=== PATIENT | male | born 1955 | race African-American/Black ===

== ENCOUNTER 2017-08-05 23:14 | Emergency (ER) | payer OTHER, MEDICAID ==
[~2017-08-05] VITALS: Wt 54.4 kg
[~2017-08-05 23:14] MED LIST: ANAPROX DS550 MG PO; CIPROFLOXACIN500 MG PO; KEFLEX500 M1 PO; LIDEX 0.05% CRE15 GM T; MOTRIN800 MG PO
[2017-08-05 23:19] VITALS: BP 155/92
[2017-08-06 00:11] LABS: BASO % 0.2 % (0.0-1.0); EOS # 0.1 10*3/uL (0.0-0.4); EOS % 1.3 % (1.0-4.0); HEMATOCRIT 35.6 % (42.0-52.0); HEMOGLOBIN 11.9 g/dl (14.0-18.0); LYMPH # 1.5 10*3/uL (1.3-4.4); LYMPH % 17.2 % (27.0-41.0); MEAN CELL VOLUME 90.1 fl (80.0-94.0); MEAN CORPUSCULAR HGB 30.1 pg (27.0-31.0); MEAN CORPUSCULAR HGB CONC 33.4 g/dl (33.0-37.0); MEAN PLATELET VOLUME 9.3 fl (9.6-12.3); MONO # 0.8 10*3/uL (0.1-1.0); MONO % 9.2 % (3.0-9.0); NEUT # 6.3 10*3/uL (2.3-7.9); NEUT % 71.9 % (47.0-73.0); PLATELET COUNT AUTOMATED 420 10*3/uL (130-400); RED BLOOD COUNT 3.95 10*6/uL (4.50-5.90); RED CELL DISTRI WIDTH 14.7 % (0-14.5); WHITE BLOOD COUNT 8.7 10*3/uL (4.8-10.8)
[2017-08-06 00:37] LABS: ALBUMIN 2.2 gm/dl (3.1-4.5); ALKALINE PHOSPHATASE 88 U/L (45-117); BUN 11 mg/dl (7-24); CHLORIDE 104 mmol/L (98-107); CREATININE 1.03 mg/dL (0.70-1.30); LIPASE 242 U/L (73-393); POTASSIUM 3.6 mmol/L (3.5-5.1); SGOT/AST 33 IU/L (3-35); SGPT/ALT 35 U/L (12-78); SODIUM 138 mmol/L (136-145); TOTAL PROTEIN 7.7 gm/dL (6.4-8.2)
[2017-08-06 00:42] LABS: TROPONIN I < 0.015 ng/ml (<0.045)
[2017-08-06] MEDS ORDERED: ZITHROMAX250 MG PO ×2 (01:06→01:12)
== END 2017-08-06 00:43 | disposition home or self-care (01) ==
LOC: ED 23:14
PROVIDERS: Emergency Medicine Emergency Medical Services
DX: J40 Bronchitis, not specified as acute or chronic (principal); D64.9 Anemia, unspecified; F17.200 Nicotine dependence, unspecified, uncomplicated

== ENCOUNTER → 2017-08-16 | Outpatient (CLI) | payer OTHER ==
[~2017-08-16] MED LIST changes: +ZITHROMAX250 MG PO
== END | disposition home or self-care (01) ==
LOC: RESCLI 01:23
DX: D64.9 Anemia, unspecified (principal); R05 Cough; F12.10 Cannabis abuse, uncomplicated; R73.03 Prediabetes; F17.200 Nicotine dependence, unspecified, uncomplicated; R06.09 Other forms of dyspnea; Z71.6 Tobacco abuse counseling; Z78.9 Other specified health status

== ENCOUNTER → 2017-08-29 | Outpatient (CLI) | payer OTHER ==
[2017-08-29 14:09] LABS: BASO % 0.6 % (0.0-1.0); EOS # 0.1 10*3/uL (0.0-0.4); EOS % 1.4 % (1.0-4.0); HEMATOCRIT 38.1 % (42.0-52.0); HEMOGLOBIN 12.7 g/dl (14.0-18.0); LYMPH # 1.7 10*3/uL (1.3-4.4); LYMPH % 22.8 % (27.0-41.0); MEAN CELL VOLUME 90.5 fl (80.0-94.0); MEAN CORPUSCULAR HGB 30.2 pg (27.0-31.0); MEAN CORPUSCULAR HGB CONC 33.3 g/dl (33.0-37.0); MEAN PLATELET VOLUME 10.5 fl (9.6-12.3); MONO # 0.9 10*3/uL (0.1-1.0); MONO % 11.8 % (3.0-9.0); NEUT # 4.6 10*3/uL (2.3-7.9); PLATELET COUNT AUTOMATED 265 10*3/uL (130-400); RED BLOOD COUNT 4.21 10*6/uL (4.50-5.90); RED CELL DISTRI WIDTH 17.1 % (0-14.5); WHITE BLOOD COUNT 7.2 10*3/uL (4.8-10.8)
[2017-08-29 14:32] LABS: IRON 95 ug/dL (65-175); TOTAL IRON BINDING CAPACITY 328 ug/dl (250-450)
== END | disposition home or self-care (01) ==
LOC: LAB 13:32
PROVIDERS: Internal Medicine
DX: D64.9 Anemia, unspecified (principal)

== ENCOUNTER → 2017-08-30 | Outpatient (CLI) | payer OTHER | END | disposition home or self-care (01) | LOC: RESCLI | DX: D64.9 Anemia, unspecified (principal); F12.10 Cannabis abuse, uncomplicated; R73.03 Prediabetes; R06.02 Shortness of breath; Z78.9 Other specified health status; Z71.6 Tobacco abuse counseling; F17.200 Nicotine dependence, unspecified, uncomplicated ==

== ENCOUNTER → 2023-01-06 | Outpatient (CLI) | payer OTHER ==
[2023-01-06 10:23] LABS: BASO % 0.4 % (0.0-1.0); BILIRUBIN Negative (Negative); BLOOD Negative (Negative); CLARITY Clear (Clear); COLOR Yellow (Yellow); EOS # 0.2 10*3/uL (0.0-0.4); EOS % 2.3 % (1.0-4.0); GLUCOSE Negative (Negative); HEMATOCRIT 35.6 % (42.0-52.0); KETONE Negative (Negative); LEUKO ESTERASE Negative (Negative); LYMPH # 0.9 10*3/uL (1.3-4.4); MEAN CELL VOLUME 74.3 fl (80.0-94.0); MEAN CORPUSCULAR HGB 21.9 pg (27.0-31.0); MEAN CORPUSCULAR HGB CONC 29.5 g/dl (33.0-37.0); MEAN PLATELET VOLUME 9.6 fl (9.6-12.3); MONO # 0.6 10*3/uL (0.1-1.0); NEUT # 6.1 10*3/uL (2.3-7.9); NEUT % 77.9 % (47.0-73.0); NITRITE Negative (Negative); PH 5.5 (4.5-8.0); PLATELET COUNT AUTOMATED 637 10*3/uL (130-400); RED BLOOD COUNT 4.79 10*6/uL (4.50-5.90); RED CELL DISTRI WIDTH 23.1 % (0-14.5); SPECIFIC GRAVITY 1.015 (1.001-1.030); WHITE BLOOD COUNT 7.8 10*3/uL (4.8-10.8)
[2023-01-06 10:33] LABS: RBC 0-2 rbc/hpf (0-2); WBC 0-2 wbc/hpf (0-5)
[2023-01-06 11:01] LABS: ALKALINE PHOSPHATASE 100 U/L (46-116); BUN 14 mg/dl (9-23); CHLORIDE 105 mmol/L (98-107); CHOLESTEROL 152 mg/dL (<200); LDL CHOLESTEROL 99 mg/dL (9-159); POTASSIUM 4.1 mmol/L (3.4-5.1); SGPT/ALT 33 U/L (10-49); TOTAL PROTEIN 7.3 gm/dL (6.0-8.0); TRIGLYCERIDES 73 mg/dl (<150)
== END | disposition home or self-care (01) ==
LOC: LAB 09:37
PROVIDERS: ATTEND Internal Medicine
DX: D64.9 Anemia, unspecified (principal); N52.9 Male erectile dysfunction, unspecified; R73.03 Prediabetes; Z79.899 Other long term (current) drug therapy

== ENCOUNTER 2024-01-06 16:44 | Emergency (ER) | payer OTHER ==
[~2024-01-06] VITALS: Ht 167.6 cm; Wt 54.4 kg
[2024-01-06 17:46] VITALS: BP 180/92
[2024-01-06 19:03] LABS: BASO % 0.2 % (0.0-1.0); EOS # 0.1 10*3/uL (0.0-0.4); EOS % 2.1 % (1.0-4.0); HEMATOCRIT 30.9 % (42.0-52.0); LYMPH # 1.2 10*3/uL (1.3-4.4); LYMPH % 23.8 % (27.0-41.0); MEAN CELL VOLUME 70.4 fl (80.0-94.0); MEAN CORPUSCULAR HGB 19.8 pg (27.0-31.0); MEAN CORPUSCULAR HGB CONC 28.2 g/dl (33.0-37.0); MEAN PLATELET VOLUME 9.4 fl (9.6-12.3); MONO # 0.7 10*3/uL (0.1-1.0); MONO % 12.5 % (3.0-9.0); NEUT # 3.2 10*3/uL (2.3-7.9); NEUT % 61.2 % (47.0-73.0); PLATELET COUNT AUTOMATED 343 10*3/uL (130-400); RED BLOOD COUNT 4.39 10*6/uL (4.50-5.90); RED CELL DISTRI WIDTH 22.3 % (0-14.5); WHITE BLOOD COUNT 5.2 10*3/uL (4.8-10.8)
[2024-01-06 19:17] LABS: ACT PARTIAL THROMBO TIME 24.1 SECONDS (20.0-32.1)
[2024-01-06 19:26] LABS: ALKALINE PHOSPHATASE 130 U/L (46-116); BUN 16 mg/dl (9-23); CHLORIDE 109 mmol/L (98-107); POTASSIUM 4.3 mmol/L (3.4-5.1); SGPT/ALT 55 U/L (5-49); TOTAL PROTEIN 6.8 gm/dL (6.0-8.0)
[2024-01-06 20:44] LABS: BILIRUBIN Negative (Negative); BLOOD Negative (Negative); CLARITY Clear (Clear); COLOR Yellow (Yellow); GLUCOSE Negative (Negative); KETONE Negative (Negative); LEUKO ESTERASE Negative (Negative); NITRITE Negative (Negative); PH 6.5 (4.5-8.0)
[2024-01-06] MEDS ORDERED: ACETAMINOPHEN 325 MG TAB PO ONE (20:50)
[2024-01-06 20:53] LABS: RBC 0-2 rbc/hpf (0-2); WBC 0-2 wbc/hpf (0-5)
[2024-01-06] MEDS ORDERED: ROPINIROLE HY0.25 MG PO (21:18)
== END 2024-01-06 21:37 | disposition home or self-care (01) ==
LOC: ED 16:44
PROVIDERS: Nurse Practitioner
DX: G25.81 Restless legs syndrome (principal); R22.0 Localized swelling, mass and lump, head; R63.4 Abnormal weight loss; R51.9 Headache, unspecified

== ENCOUNTER → 2024-12-10 | Outpatient (CLI) | payer OTHER ==
[~2024-12-10] MED LIST changes: +ASPIRIN CHILDRE81 MG PO; +ATORVASTATIN CA40 M1 PO; +LISINOPRIL10 M1 PO; +MASON NATURAL325 MG PO; +METOPROLOL SUCC25 M2 PO; +PANTOPRAZOLE SO40 MG PO; +ROPINIROLE HY0.25 MG PO; +VITAMIN D3125 MC1 PO
[2024-12-10 11:01] LABS: BASO % 0.5 % (0.0-1.0); EOS # 0.1 10*3/uL (0.0-0.4); EOS % 2.6 % (1.0-4.0); HEMATOCRIT 27.9 % (42.0-52.0); MEAN CELL VOLUME 76.2 fl (80.0-94.0); MEAN CORPUSCULAR HGB 20.2 pg (27.0-31.0); MEAN CORPUSCULAR HGB CONC 26.5 g/dl (33.0-37.0); MEAN PLATELET VOLUME 10.3 fl (9.6-12.3); MONO # 0.4 10*3/uL (0.1-1.0); MONO % 9.4 % (3.0-9.0); NEUT # 2.9 10*3/uL (2.3-7.9); NEUT % 68.5 % (47.0-73.0); PLATELET COUNT AUTOMATED 337 10*3/uL (130-400); RED BLOOD COUNT 3.66 10*6/uL (4.50-5.90); RED CELL DISTRI WIDTH 24.9 % (0-14.5); WHITE BLOOD COUNT 4.2 10*3/uL (4.8-10.8)
[2024-12-10 11:31] LABS: ALKALINE PHOSPHATASE 86 U/L (46-116); BUN 12 mg/dl (9-23); CHLORIDE 105 mmol/L (98-107); SGPT/ALT 44 U/L (5-49); TOTAL PROTEIN 6.7 gm/dL (6.0-8.0)
== END | disposition home or self-care (01) ==
LOC: RESCLI 02:56 → LAB 03:06
PROVIDERS: ATTEND Internal Medicine
DX: D50.9 Iron deficiency anemia, unspecified (principal); R63.4 Abnormal weight loss

== ENCOUNTER 2025-01-12 17:10 | Emergency (ER) | payer OTHER ==
[~2025-01-12] VITALS: Ht 167.6 cm; Wt 51.4 kg
[2025-01-12 17:27] VITALS: BP 121/60
[2025-01-12] MEDS ORDERED: SODIUM CHLORIDE 0.9% 1,000 ML IV ONE (17:30)
[2025-01-12 17:39] LABS: BASO # 0.0 10*3/uL (0.0-0.1); BASO % 0.2 % (0.0-1.0); EOS # 0.1 10*3/uL (0.0-0.4); EOS % 1.0 % (1.0-4.0); MEAN CELL VOLUME 77.0 fl (80.0-94.0); MEAN CORPUSCULAR HGB 21.3 pg (27.0-31.0); MEAN PLATELET VOLUME 9.5 fl (9.6-12.3); MONO # 0.6 10*3/uL (0.1-1.0); MONO % 9.9 % (3.0-9.0); NEUT # 4.8 10*3/uL (2.3-7.9); NEUT % 76.9 % (47.0-73.0); NUCLEATED RED BLOOD CELL 0.0 10*3/uL (0.0-0.0); NUCLEATED RED BLOOD CELL 0.3 % (0.0-0.0); PLATELET COUNT AUTOMATED 364 10*3/uL (130-400); RED CELL DISTRI WIDTH 24.9 % (0-14.5)
[2025-01-12 18:14] LABS: BUN 16 mg/dl (9-23)
[2025-01-12] MEDS ORDERED: AVPAK AZITHROM250 M1 PO (18:34)
[2025-01-12] MEDS ORDERED: IRON325 M3 PO (18:34)
== END 2025-01-12 18:40 | disposition home or self-care (01) ==
LOC: ED 17:10
PROVIDERS: Emergency Medicine
DX: R07.89 Other chest pain (principal); J40 Bronchitis, not specified as acute or chronic; R09.1 Pleurisy; F12.90 Cannabis use, unspecified, uncomplicated; Z98.890 Other specified postprocedural states

== ENCOUNTER 2025-03-09 16:00 | Emergency (ER) | payer OTHER ==
[~2025-03-09] VITALS: Ht 167.6 cm; Wt 54.4 kg
[~2025-03-09 16:00] MED LIST changes: +AVPAK AZITHROM250 M1 PO; +IRON325 M3 PO
[2025-03-09 16:17] VITALS: BP 125/68
[2025-03-09 16:49] LABS: MEAN CELL VOLUME 67.5 fl (80.0-94.0); MEAN CORPUSCULAR HGB 17.8 pg (27.0-31.0); MEAN PLATELET VOLUME 8.9 fl (9.6-12.3); NUCLEATED RED BLOOD CELL 0.0 % (0.0-0.0); NUCLEATED RED BLOOD CELL 0.0 10*3/uL (0.0-0.0); PLATELET COUNT AUTOMATED 355 10*3/uL (130-400); RED CELL DISTRI WIDTH 22.6 % (0-14.5)
[2025-03-09 17:11] LABS: MANUAL DIFF REFLEX YES
[2025-03-09 17:15] LABS: PLATELET SUFFICIENCY NORMAL (NORMAL)
[2025-03-09 17:18] LABS: BUN 15 mg/dl (9-23); CPK 130 U/L (34-171); SGPT/ALT 33 U/L (5-49)
[2025-03-09 17:25] LABS: BILIRUBIN Negative (Negative); BLOOD Negative (Negative); CLARITY Clear (Clear); COLOR Yellow (Yellow); KETONE Trace (Negative); LEUKO ESTERASE Negative (Negative); NITRITE Negative (Negative); PH 6.0 (4.5-8.0); SPECIFIC GRAVITY 1.020 (1.001-1.030); UROBILINOGEN 1.0 E.U./dl (0.0-1.0)
[2025-03-09 17:43] LABS: URINE AMPHETAMINES Negative (1000ng/ml); URINE BARBITURATES Negative (200ng/ml); URINE BENZODIAZEPINES Negative (200ng/ml); URINE CANNABINOIDS (THC) Positive (50ng/ml); URINE COCAINE Positive (300ng/ml); URINE METHADONE Negative (300ng/ml); URINE OPIATES Negative (300ng/ml); URINE PHENCYCLIDINE Negative (25ng/ml)
[2025-03-09 17:48] LABS: BACTERIA 1+; MUCOUS 2+; RBC 0-2 rbc/hpf (0-2); WBC 0-2 wbc/hpf (0-5)
[2025-03-09 18:00] LABS: ETHYL ALCOHOL < 3.0 mg/dl (<3)
== END 2025-03-09 17:55 | disposition left against medical advice (07) ==
LOC: ED 16:00
PROVIDERS: Emergency Medicine
DX: R41.0 Disorientation, unspecified (principal); F12.10 Cannabis abuse, uncomplicated; D50.0 Iron deficiency anemia secondary to blood loss (chronic); F14.10 Cocaine abuse, uncomplicated; F17.210 Nicotine dependence, cigarettes, uncomplicated; Z98.890 Other specified postprocedural states

== ENCOUNTER 2025-04-28 22:12 | Emergency (ER) | payer OTHER ==
[~2025-04-28] VITALS: Ht 167.6 cm; Wt 54.4 kg
[2025-04-28 22:25] VITALS: BP 160/97
[2025-04-29] MEDS ORDERED: METHOCARBAMOL 500 MG TAB PO ONE (00:30)
[2025-04-29] MEDS ORDERED: NAPROXEN250 MG PO (00:31)
[2025-04-29] MEDS ORDERED: METHOCARBAMOL500 M1 PO (00:31)
[2025-04-29] MEDS ORDERED: MIRALAX POWDER17 G1 PO (00:31)
[2025-04-29] MEDS ORDERED: MAGNESIUM CITRATE 296 ML BOT PO ONE (00:35)
== END 2025-04-29 00:39 | disposition home or self-care (01) ==
LOC: ED 22:12
DX: S39.012A Strain of muscle, fascia and tendon of lower back, initial encounter (principal); K59.00 Constipation, unspecified; F12.90 Cannabis use, unspecified, uncomplicated; F17.210 Nicotine dependence, cigarettes, uncomplicated; Z98.890 Other specified postprocedural states; X58.XXXA Exposure to other specified factors, initial encounter; Y93.89 Activity, other specified; Y92.89 Other specified places as the place of occurrence of the external cause; Y99.8 Other external cause status

== ENCOUNTER 2025-05-10 10:43 | Emergency (ER) | payer OTHER ==
[~2025-05-10] VITALS: Ht 167.6 cm; Wt 54.4 kg
[~2025-05-10 10:43] MED LIST changes: +METHOCARBAMOL500 M1 PO; +MIRALAX POWDER17 G1 PO; +NAPROXEN250 MG PO
[2025-05-10 10:57] VITALS: BP 151/74
[2025-05-10] MEDS ORDERED: PREDNISONE50 MG PO (11:15)
== END 2025-05-10 11:27 | disposition home or self-care (01) ==
LOC: ED 10:43
DX: M54.42 Lumbago with sciatica, left side (principal); F17.200 Nicotine dependence, unspecified, uncomplicated; Z79.82 Long term (current) use of aspirin; Z79.899 Other long term (current) drug therapy; Z98.890 Other specified postprocedural states

== ENCOUNTER 2025-05-16 01:00 | Emergency (ER) | payer OTHER ==
[~2025-05-16] VITALS: Ht 167.6 cm; Wt 54.4 kg
[~2025-05-16 01:00] MED LIST changes: +PREDNISONE50 MG PO
[2025-05-16 01:15] VITALS: BP 149/82
== END 2025-05-16 01:29 | disposition home or self-care (01) ==
LOC: ED 01:00
DX: G89.29 Other chronic pain (principal); M79.662 Pain in left lower leg; Z98.890 Other specified postprocedural states

== ENCOUNTER 2025-05-19 12:46 | Emergency (ER) | payer OTHER ==
[~2025-05-19] VITALS: Ht 167.6 cm; Wt 54.4 kg
[2025-05-19 13:53] VITALS: BP 181/96
[2025-05-19] MEDS ORDERED: Dexamethasone Sodium Phospha 20 MG/5 ML VIAL IM ONE (14:05)
[2025-05-19] MEDS ORDERED: METHOCARBAMOL 750 MG TAB PO ONE (14:05)
[2025-05-19] MEDS ORDERED: METHOCARBAMOL750 M1 PO (16:02)
[2025-05-19] MEDS ORDERED: PREDNISONE20 M1 PO (16:02)
== END 2025-05-19 16:11 | disposition home or self-care (01) ==
LOC: ED 12:46
DX: M54.42 Lumbago with sciatica, left side (principal); F17.210 Nicotine dependence, cigarettes, uncomplicated; Z98.890 Other specified postprocedural states

== ENCOUNTER 2025-06-03 08:53 | Emergency (ER) | payer OTHER ==
[~2025-06-03] VITALS: Ht 167.6 cm; Wt 54.4 kg
[~2025-06-03 08:53] MED LIST changes: +METHOCARBAMOL750 M1 PO; +PREDNISONE20 M1 PO
[2025-06-03 09:08] VITALS: BP 159/85
== END 2025-06-03 10:53 | disposition home or self-care (01) ==
LOC: ED 08:53
DX: M54.16 Radiculopathy, lumbar region (principal); F17.200 Nicotine dependence, unspecified, uncomplicated; Z79.899 Other long term (current) drug therapy; Z79.82 Long term (current) use of aspirin; Z98.890 Other specified postprocedural states

== ENCOUNTER → 2025-06-12 | Outpatient (CLI) | payer OTHER ==
[2025-06-12 10:52] LABS: BASO # 0.0 10*3/uL (0.0-0.1); BASO % 0.3 % (0.0-1.0); EOS # 0.2 10*3/uL (0.0-0.4); EOS % 2.6 % (1.0-4.0); MEAN CELL VOLUME 66.3 fl (80.0-94.0); MEAN CORPUSCULAR HGB 16.9 pg (27.0-31.0); MEAN PLATELET VOLUME 10.0 fl (9.6-12.3); MONO # 0.5 10*3/uL (0.1-1.0); MONO % 7.8 % (3.0-9.0); NEUT # 4.5 10*3/uL (2.3-7.9); NEUT % 78.9 % (47.0-73.0); NUCLEATED RED BLOOD CELL 0.0 10*3/uL (0.0-0.0); NUCLEATED RED BLOOD CELL 0.3 % (0.0-0.0); PLATELET COUNT AUTOMATED 485 10*3/uL (130-400); RED CELL DISTRI WIDTH 25.5 % (0-14.5)
[2025-06-12 11:14] LABS: BUN 10 mg/dl (9-23); GAMMA GLUTAMYL TRANSFERASE 39 U/L (0-73); LDL CHOLESTEROL 76 mg/dL (9-159); SGPT/ALT 25 U/L (5-49)
[2025-06-12 11:35] LABS: VITAMIN D, 25-HYDROXY 45.5 ng/mL (30-100)
== END | disposition home or self-care (01) ==
LOC: LAB 10:06
PROVIDERS: ATTEND Nurse Practitioner Family
DX: Z12.5 Encounter for screening for malignant neoplasm of prostate (principal); M16.12 Unilateral primary osteoarthritis, left hip; D50.9 Iron deficiency anemia, unspecified; E55.9 Vitamin D deficiency, unspecified; F10.10 Alcohol abuse, uncomplicated; E78.5 Hyperlipidemia, unspecified; R74.01 Elevation of levels of liver transaminase levels